=== PATIENT | female | born 1995 | race Two or more races ===

== ENCOUNTER 2023-02-07 18:51 | Emergency (ER) | payer MEDICAID ==
[~2023-02-07] VITALS: Ht 154.9 cm; Wt 54.4 kg
[2023-02-07 18:54] VITALS: TEMP 98.2
[2023-02-07] MEDS ORDERED: IBUPROFEN 600 MG TABLET PO ONE (20:30)
[2023-02-07] MEDS ORDERED: IBUPROFEN 600 MG TABLET ONE (20:34)
[2023-02-07 20:55] LABS: BASOPHILS # (AUTO) 0.2 K/uL (0.0-0.2); BASOPHILS % (AUTO) 2.8 % (0.0-2.0); EOSINOPHILS # (AUTO) 0.2 K/uL (0.0-0.7); EOSINOPHILS % (AUTO) 2.4 % (0.0-6.0); HEMATOCRIT 39 % (33-45); HEMOGLOBIN 13.2 g/dL (11.5-14.8); LYMPHOCYTES # (AUTO) 1.2 K/uL (0.8-4.8); LYMPHOCYTES % (AUTO) 18.1 % (20.0-44.0); MEAN CORPUSCULAR HEMOGLOBIN 28 PG (26.0-33.0); MEAN CORPUSCULAR HGB CONC 34 g/dl (31.0-36.0); MEAN CORPUSCULAR VOLUME 84 fL (82-100); MONOCYTES # (AUTO) 0.4 K/uL (0.1-1.30); NEUTROPHILS # (AUTO) 4.8 K/uL (1.8-8.9); NEUTROPHILS % (AUTO) 70.7 % (43.0-81.0); PLATELET COUNT (AUTO) 188 K/uL (150-450); RED BLOOD CELL COUNT(AUTO) 4.67 MIL/uL (4.0-5.2); WHITE BLOOD COUNT (AUTO) 6.8 K/uL (4.3-11.0)
[2023-02-07 21:08] LABS: CALCIUM, SERUM 8.8 mg/dL (8.5-10.1); CREATININE 0.6 mg/dL (0.6-1.3); POTASSIUM 3.5 mmol/L (3.5-5.1)
[2023-02-07 21:29] LABS: INR 0.92 (0.91-1.10); PARTIAL THROMBOPLASTIN TIME 29.3 SEC (24.3-34.3); PROTHROMBIN TIME 9.8 SECS (9.2-11.1)
[2023-02-07] MEDS ORDERED: ACET-3117 PO (22:03)
[2023-02-08 01:02] VITALS: BP 121/72; O2SAT 98
== END 2023-02-08 01:03 | disposition home or self-care (01) ==
LOC: ER 18:55
DX: J32.9 Chronic sinusitis, unspecified (principal); J45.909 Unspecified asthma, uncomplicated; F41.9 Anxiety disorder, unspecified
CPT/HCPCS: 36415; 70450-TC; 80048-TC; 85025-TC; 85730-TC

== ENCOUNTER 2023-04-25 19:05 | Emergency (ER) | payer MEDICAID ==
[~2023-04-25] VITALS: Ht 154.9 cm; Wt 56.7 kg
[~2023-04-25 19:05] MED LIST: ACET-3117 PO
[2023-04-25] MEDS ORDERED: ACETAMINOPHEN ES 500 MG TABLET ONE (21:12)
[2023-04-25] MEDS ORDERED: LIDOCAINE 5% (PATCH) 1 EA PATCH TP ONE (21:12)
[2023-04-25] MEDS ORDERED: LIDOCAINE 5% (PATCH) 1 EA PATCH TP SCH (21:30)
[2023-04-25] MEDS ORDERED: ACETAMINOPHEN ES 500 MG TABLET PO ONE (21:30)
[2023-04-25 22:01] LABS: PREGNANCY TEST URINE QUAL NEGATIVE (NEGATIVE)
[2023-04-25] MEDS ORDERED: KETOROLAC TROMETHAMINE 15 MG/ML VIAL IM ONE (22:30)
[2023-04-25] MEDS ORDERED: dexaMETHasone SOD PHOSPHATE 10 MG/ML VIAL IM ONE (22:30)
[2023-04-25] MEDS ORDERED: IBUP-1955 PO (22:45)
[2023-04-25] MEDS ORDERED: LIDO1ADH71 TOP (22:45)
[2023-04-25] MEDS ORDERED: ACET-2605 PO (22:45)
[2023-04-25 22:55] VITALS: BP 121/70; TEMP 98.1; O2SAT 99
== END 2023-04-25 22:56 | disposition home or self-care (01) ==
LOC: ER 19:11
DX: M54.50 Low back pain, unspecified (principal); J45.909 Unspecified asthma, uncomplicated; F41.9 Anxiety disorder, unspecified
CPT/HCPCS: 84703-TC

== ENCOUNTER 2024-08-27 21:42 | Emergency (ER) | payer MEDICAID ==
[~2024-08-27] VITALS: Ht 165.1 cm; Wt 54.4 kg
[~2024-08-27 21:42] MED LIST changes: +ACET-2605 PO; +IBUP-1955 PO; +LIDO1ADH71 TOP
[2024-08-27 21:59] VITALS: BP 106/64; TEMP 98.7; O2SAT 100
[2024-08-27] MEDS: TETRAcaine 5 ML BOTTLE LEFTEYE ONE (22:14)
[2024-08-27] MEDS: FLUORESCEIN SODIUM OPHTH 1 EA STRIP LEFTEYE ONE (22:14)
[2024-08-27] MEDS ORDERED: FLUORESCEIN SODIUM OPHTH 1 EA STRIP ONE (22:14)
[2024-08-27] MEDS ORDERED: TETRAcaine 5 ML BOTTLE ONE (22:14)
== END 2024-08-27 22:27 | disposition home or self-care (01) ==
LOC: ER 21:45
DX: H57.12 Ocular pain, left eye (principal); H57.89 Other specified disorders of eye and adnexa; J45.909 Unspecified asthma, uncomplicated; Z60.2 Problems related to living alone

== ENCOUNTER 2024-12-31 12:08 | Emergency (ER) | payer MEDICAID ==
[~2024-12-31] VITALS: Ht 165.1 cm; Wt 56.7 kg
[2024-12-31] MEDS ORDERED: ACETAMINOPHEN ES 500 MG TABLET ONE (12:34)
[2024-12-31] MEDS: ACETAMINOPHEN ES 500 MG TABLET PO ONE (12:36)
[2024-12-31 12:50] LABS: PLATELET COUNT (AUTO) 205 K/uL (150-450); RED BLOOD CELL COUNT(AUTO) 4.70 MIL/uL (4.0-5.2); RED CELL DISTRIBUTION WIDTH 13.7 % (11.5-15.0); WHITE BLOOD COUNT (AUTO) 4.7 K/uL (4.3-11.0)
[2024-12-31 12:59] LABS: CALCIUM, SERUM 9.2 mg/dL (8.5-10.1); CREATININE 0.6 mg/dL (0.6-1.3); SODIUM SERUM 135.0 mmol/L (136-145); UREA NITROGEN, BLOOD 13.0 mg/dL (7-18)
[2024-12-31 13:10] LABS: PREGNANCY TEST SERUM QUAN 650.0 mIU/mL (0-6)
[2024-12-31 13:12] LABS: APPEARANCE,URINE CLEAR (CLEAR); BLOOD, URINE Negative Ery/uL (NEGATIVE); LEUKOCYTE ESTERASE ,URINE Negative (NEGATIVE); UGLUCOSE Negative (NEGATIVE)
[2024-12-31 13:16] LABS: NITRITE, URINE NEGATIVE (NEGATIVE)
[2024-12-31 14:52] VITALS: BP 110/65; TEMP 98.5; O2SAT 98
== END 2024-12-31 14:53 | disposition home or self-care (01) ==
LOC: ER 12:16
DX: O20.0 Threatened abortion (principal); J45.909 Unspecified asthma, uncomplicated; F41.9 Anxiety disorder, unspecified
CPT/HCPCS: 36415; 76856-TC; 80048-TC; 84702-TC; 85025-TC; 87086-TC

== ENCOUNTER 2025-01-03 12:36 | Emergency (ER) | payer MEDICAID, OTHER ==
[~2025-01-03] VITALS: Ht 160 cm; Wt 54.4 kg
[2025-01-03 12:51] VITALS: TEMP 98
[2025-01-03 13:34] LABS: CALCIUM, SERUM 8.8 mg/dL (8.5-10.1); CREATININE 0.7 mg/dL (0.6-1.3); SODIUM SERUM 140.0 mmol/L (136-145); UREA NITROGEN, BLOOD 13.0 mg/dL (7-18)
[2025-01-03 13:41] LABS: APPEARANCE,URINE CLEAR (CLEAR); BLOOD, URINE NEGATIVE Ery/uL (NEGATIVE); LEUKOCYTE ESTERASE ,URINE NEGATIVE (NEGATIVE); NITRITE, URINE NEGATIVE (NEGATIVE); UGLUCOSE NEGATIVE (NEGATIVE)
[2025-01-03 13:42] LABS: PLATELET COUNT (AUTO) 204 K/uL (150-450); RED BLOOD CELL COUNT(AUTO) 4.33 MIL/uL (4.0-5.2); RED CELL DISTRIBUTION WIDTH 13.8 % (11.5-15.0); WHITE BLOOD COUNT (AUTO) 5.0 K/uL (4.3-11.0)
[2025-01-03 14:00] LABS: PREGNANCY TEST SERUM QUAN 2874.0 mIU/mL (0-6)
[2025-01-03] MEDS ORDERED: ACET-2030 PO (16:56)
[2025-01-03 17:09] VITALS: BP 102/61; O2SAT 97
== END 2025-01-03 17:10 | disposition home or self-care (01) ==
LOC: ER 12:40
DX: R10.2 Pelvic and perineal pain (principal); F60.9 Personality disorder, unspecified; J45.909 Unspecified asthma, uncomplicated
CPT/HCPCS: 36415; 76856-TC; 80048-TC; 84702-TC; 85025-TC

== ENCOUNTER 2025-01-21 13:10 | Emergency (ER) | payer MEDICAID ==
[~2025-01-21] VITALS: Ht 165.1 cm; Wt 54.4 kg
[~2025-01-21 13:10] MED LIST changes: +ACET-2030 PO
[2025-01-21 13:44] VITALS: TEMP 98.7
[2025-01-21 13:58] LABS: PLATELET COUNT (AUTO) 185 K/uL (150-450); RED BLOOD CELL COUNT(AUTO) 4.46 MIL/uL (4.0-5.2); RED CELL DISTRIBUTION WIDTH 14.1 % (11.5-15.0); WHITE BLOOD COUNT (AUTO) 6.4 K/uL (4.3-11.0)
[2025-01-21 14:05] LABS: APPEARANCE,URINE CLEAR (CLEAR); BLOOD, URINE Trace-intact Ery/uL (NEGATIVE); LEUKOCYTE ESTERASE ,URINE Negative (NEGATIVE); UGLUCOSE Negative (NEGATIVE)
[2025-01-21 14:06] LABS: CALCIUM, SERUM 9.2 mg/dL (8.5-10.1); CREATININE 0.5 mg/dL (0.6-1.3); SODIUM SERUM 134.0 mmol/L (136-145); UREA NITROGEN, BLOOD 11.0 mg/dL (7-18)
[2025-01-21 14:07] LABS: NITRITE, URINE NEGATIVE (NEGATIVE)
[2025-01-21 14:15] LABS: ADD URINE CULTURE NO; SQUAMOUS EPITHELIAL CELL,UR Few /HPF (None Seen)
[2025-01-21 14:20] LABS: ASPARTATE AMINOTRANSFERASE 12.0 U/L (15-37); TOTAL PROTEIN, SERUM 6.7 g/dL (6.4-8.2)
[2025-01-21 14:33] LABS: PREGNANCY TEST SERUM QUAN 121879.0 mIU/mL (0-6)
[2025-01-21] MEDS ORDERED: ACET325T53 PO (16:11)
[2025-01-21 16:34] VITALS: BP 108/68; O2SAT 99
== END 2025-01-21 16:40 | disposition home or self-care (01) ==
LOC: ER 13:14
DX: O26.891 Other specified pregnancy related conditions, first trimester (principal); O21.8 Other vomiting complicating pregnancy; O99.341 Other mental disorders complicating pregnancy, first trimester; O99.511 Diseases of the respiratory system complicating pregnancy, first trimester; F41.9 Anxiety disorder, unspecified; R10.2 Pelvic and perineal pain; J45.909 Unspecified asthma, uncomplicated; Z3A.01 Less than 8 weeks gestation of pregnancy
CPT/HCPCS: 36415; 76805-TC; 80048-TC; 80076-TC; 81001; 84702-TC; 85025-TC; 87086-TC

== ENCOUNTER 2025-02-13 12:33 | Emergency (ER) | payer MEDICAID ==
[~2025-02-13] VITALS: Ht 165.1 cm; Wt 54.4 kg
[~2025-02-13 12:33] MED LIST changes: +ACET325T53 PO
[2025-02-13 13:34] LABS: PLATELET COUNT (AUTO) 189 K/uL (150-450); RED BLOOD CELL COUNT(AUTO) 4.54 MIL/uL (4.0-5.2); RED CELL DISTRIBUTION WIDTH 14.9 % (11.5-15.0); WHITE BLOOD COUNT (AUTO) 7.4 K/uL (4.3-11.0)
[2025-02-13 13:44] LABS: APPEARANCE,URINE CLOUDY (CLEAR); BLOOD, URINE Negative Ery/uL (NEGATIVE); LEUKOCYTE ESTERASE ,URINE Negative (NEGATIVE); NITRITE, URINE NEGATIVE (NEGATIVE); UGLUCOSE Negative (NEGATIVE)
[2025-02-13 13:45] LABS: CALCIUM, SERUM 8.9 mg/dL (8.5-10.1); CREATININE 0.5 mg/dL (0.6-1.3); SODIUM SERUM 133.0 mmol/L (136-145); UREA NITROGEN, BLOOD 10.0 mg/dL (7-18)
[2025-02-13 13:56] LABS: ADD URINE CULTURE NO; SQUAMOUS EPITHELIAL CELL,UR Few /HPF (None Seen); URINE AMORPHOUS URATE Moderate /HPF (None Seen)
[2025-02-13 14:13] LABS: ASPARTATE AMINOTRANSFERASE 13.0 U/L (15-37); PREGNANCY TEST SERUM QUAN 136118.0 mIU/mL (0-6); TOTAL PROTEIN, SERUM 6.7 g/dL (6.4-8.2)
[2025-02-13 14:42] VITALS: BP 121/65; TEMP 98.1; O2SAT 99
== END 2025-02-13 14:43 | disposition home or self-care (01) ==
LOC: ER 12:41
DX: O26.891 Other specified pregnancy related conditions, first trimester (principal); O21.9 Vomiting of pregnancy, unspecified; O99.511 Diseases of the respiratory system complicating pregnancy, first trimester; O99.341 Other mental disorders complicating pregnancy, first trimester; J45.909 Unspecified asthma, uncomplicated; F60.9 Personality disorder, unspecified; Z3A.10 10 weeks gestation of pregnancy
CPT/HCPCS: 36415; 76705-TC; 76805-TC; 80048-TC; 80076-TC; 81001; 84702-TC; 85025-TC